=== PATIENT | female | born 1970 | race Caucasian/White ===

== ENCOUNTER → 2017-07-19 | Outpatient (CLI) | payer OTHER | LOC: MC.RAD 13:35 | DX: Z12.31 Encounter for screening mammogram for malignant neoplasm of breast (principal); N63.14 Unspecified lump in the right breast, lower inner quadrant ==

== ENCOUNTER → 2017-07-24 | Outpatient (CLI) | payer OTHER | LOC: MC.RAD 09:48 | DX: D24.1 Benign neoplasm of right breast (principal) ==

== ENCOUNTER 2018-06-16 10:30 | Outpatient (RCR) | payer OTHER | END 2018-07-16 10:02 | disposition home or self-care (01) | LOC: MKS.ESL.PT 10:30 | DX: Z01.818 Encounter for other preprocedural examination (principal); M25.562 Pain in left knee; Z96.652 Presence of left artificial knee joint ==

== ENCOUNTER 2018-08-11 11:15 | Outpatient (RCR) | payer OTHER | END 2018-09-11 | LOC: MKS.ESL.PT | DX: Z96.652 Presence of left artificial knee joint (principal) ==

== ENCOUNTER → 2020-04-05 | Outpatient (CLI) | payer BC | LOC: MC.RAD 16:30 | DX: Z12.31 Encounter for screening mammogram for malignant neoplasm of breast (principal); Z98.82 Breast implant status ==

== ENCOUNTER 2021-04-05 15:26 | Outpatient (RCR) | payer BC | END 2021-05-01 | disposition home or self-care (01) | LOC: MKS.ESL.PT | DX: M17.11 Unilateral primary osteoarthritis, right knee (principal) ==

== ENCOUNTER → 2021-05-01 | Outpatient (RCR) | payer BC | LOC: MKS.ESL.PT | DX: M17.11 Unilateral primary osteoarthritis, right knee (principal); Z96.651 Presence of right artificial knee joint ==

== ENCOUNTER 2021-05-29 16:15 | Outpatient (RCR) | payer BC | END 2021-06-01 | disposition home or self-care (01) | LOC: MKS.ESL.PT | DX: M17.11 Unilateral primary osteoarthritis, right knee (principal); Z96.651 Presence of right artificial knee joint | CPT/HCPCS: G0283-GP ==

== ENCOUNTER 2021-06-30 16:15 | Outpatient (RCR) | payer BC | END 2021-07-01 | disposition home or self-care (01) | LOC: MKS.ESL.PT | DX: M17.11 Unilateral primary osteoarthritis, right knee (principal); Z96.651 Presence of right artificial knee joint ==

== ENCOUNTER 2021-07-24 12:31 | Outpatient (RCR) | payer BC | END 2021-07-24 12:32 | disposition home or self-care (01) | LOC: MKS.ESL.PT 12:31 | DX: Z96.651 Presence of right artificial knee joint (principal) ==

== ENCOUNTER 2021-07-24 12:32 | Outpatient (RCR) | payer BC | END 2021-07-24 12:33 | disposition home or self-care (01) | LOC: MKS.ESL.PT 12:32 | DX: M17.11 Unilateral primary osteoarthritis, right knee (principal) ==

== ENCOUNTER → 2021-10-02 | Outpatient (CLI) | payer BC | LOC: MC.RAD 12:50 | DX: Z12.31 Encounter for screening mammogram for malignant neoplasm of breast (principal) ==